=== PATIENT | female | born 1985 | race African-American/Black ===

== ENCOUNTER 2019-07-02 14:57 | Emergency (ER) | payer BC ==
[~2019-07-02] VITALS: Ht 167.6 cm; Wt 116.1 kg
[2019-07-02 15:31] VITALS: BP 106/54
--- NOTE | 2019-07-02 15:31 | NUR ---
ED Nurse Note: Patient arrived to ED by car from home c/o feeling off balance x3 days. Patient states she gets intermittent 5-10/10 headaches, but no ear eache or ear problems.. Patient AxO x 4, VSS. No s/s of acute distress. Bed in lowest position.
[2019-07-02 16:33] LABS: APPEARANCE,URINE CLEAR; BILIRUBIN, URINE NEGATIVE (NEGATIVE); COLOR,URINE PALE YELLOW; GLUCOSE, URINE (UA) NEGATIVE (NEGATIVE); KETONES,URINE NEGATIVE (NEGATIVE); LEUKOCYTE ESTERASE ,URINE NEGATIVE (NEGATIVE); NITRITE,URINE NEGATIVE (NEGATIVE); PH,URINE 5 (4.5-8.0); PROTEIN,URINE NEGATIVE (NEGATIVE); UROBILINOGEN,URINE NORMAL MG/DL (0.0-1.0)
--- NOTE | 2019-07-02 17:11 | Diagnostic Imaging Report ---
Indications: Dizziness and vertigo Technique: Spiral acquisitions obtained through the brain. Angled axial and coronal 5 x 5 mm slices were reconstructed. Total dose length product 1394 mGycm. CTDI vol(s) 62 mGy. Dose reduction achieved using automated exposure control Comparison: None. Findings: Normal size ventricles and extra axial CSF spaces. Normal burton-white differentiation. Visualized orbits and sinuses are unremarkable. Intact calvarium. No acute intercranial hemorrhage or edema, mass effect, nor midline shift. Impression: Negative This agrees with the preliminary interpretation provided overnight by [facility]. The CT scanner at [facility] is accredited by the [employer] and the scans are performed using protocols designed to limit radiation exposure to as low as reasonably achievable to attain images of sufficient resolution adequate for diagnostic evaluation.
[2019-07-02 19:27] LABS: BASOPHILS % (AUTO) 0.9 % (0.0-2.0); EOSINOPHILS % (AUTO) 3.1 % (0.0-3.0); HEMATOCRIT 39.5 % (37.0-47.0); HEMOGLOBIN 12.8 G/DL (12.0-16.0); LYMPHOCYTES % (AUTO) 40.5 % (20.0-45.0); MEAN CORPUSCULAR VOLUME 84 FL (80-99); NEUTROPHILS % (AUTO) 52.5 % (45.0-75.0); PLATELET COUNT 316 K/UL (150-450); RED BLOOD COUNT 4.72 M/UL (4.20-5.40); RED CELL DISTRIBUTION WIDTH 11.5 % (11.6-14.8); WHITE BLOOD COUNT 7.4 K/UL (4.8-10.8)
--- NOTE | 2019-07-02 19:28 | NUR ---
HAND-OFF: Report given to Stiven Kline RN.
--- NOTE | 2019-07-02 19:30 | NUR ---
ED Nurse Note: patient resting in bed with no acute distress. ao4. vss. aware of pending discharge; waiting for dc paperwork.
[2019-07-02 19:46] LABS: ANION GAP 12 mmol/L (5-15); BLOOD UREA NITROGEN 9 mg/dL (7-18); CARBON DIOXIDE 26 MMOL/L (21-32); CHLORIDE 106 MMOL/L (98-107); CREATININE 0.8 MG/DL (0.55-1.30); POTASSIUM 3.8 MMOL/L (3.5-5.1); SODIUM 144 MMOL/L (136-145)
[2019-07-02 19:54] LABS: ALANINE AMINOTRANSFERASE 42 U/L (12-78); ALBUMIN 3.9 G/DL (3.4-5.0); ALBUMIN/GLOBULIN RATIO 0.9 (1.0-2.7); ALKALINE PHOSPHATASE 60 U/L (46-116); ASPARTATE AMINO TRANSFERASE 28 U/L (15-37); BILIRUBIN,TOTAL 0.2 MG/DL (0.2-1.0)
--- NOTE | 2019-07-02 20:13 | Emergency Room Report ---
History of Present Illness General Chief Complaint: Headache Source: Patient Present Illness HPI 33-year-old female with no significant past medical history other than heavy tobacco smoker and daily consumption of alcohol use complaining of 3 days of lightheadedness and vertigo. Complains of a slight shortness of breath that started a day ago. Denies any recent cough and congestion other URI symptoms. Reports that everything started on New Year's Kacy and she does not recall whether she had a head injury or loss of consciousness as she consumes a lot of alcohol. Reports that she also smokes tobacco on daily basis. Denies other drug use. Denies abdominal pain, nausea vomiting, generalized chest pain, generalized weakness or unilateral weakness. Has not taken medication for symptom relief. Patient appears to be stable with stable vital signs. Denies meningismus, fever and chills. Denies urinary symptoms. Denies at this time. Denies dizziness however reports that she feels off balance and heavy legs and tingling in both legs when tries to walk. Reports that the vertigo is not worse with change of position of her head. Patient walks within normal limits and has no slurred speech. Allergies: Coded Allergies: No Known Allergies (Unverified , 07/02/19) Patient History Past Medical History: see triage record Past Surgical History: unable to obtain Pertinent Family History: none Social History: Reports: smoking, alcohol use Last Menstrual Period: 06/24/2019 Now: No Immunizations: UTD Reviewed Nursing Documentation: PMH: Agreed; PSxH: Agreed Nursing Documentation-PMH Past Medical History: No Stated History Review of Systems All Other Systems: negative except mentioned in HPI Physical Exam Vital Signs Date Time Temp Pulse Resp B/P (MAP) Pulse Ox O2 Delivery O2 Flow Rate FiO2 07/02/19 15:31 97.9 85 19 106/54 (71) 98 Room Air Sp02 EP Interpretation: reviewed, normal General Appearance: no apparent distress, alert, GCS 15, non-toxic Head: normocephalic, atraumatic Eyes: bilateral eye normal inspection, bilateral eye PERRL ENT: hearing grossly normal, normal pharynx, no angioedema, normal voice Neck: full range of motion, supple, thyroid normal, no meningismus, no bony tend, supple/symm/no masses Respiratory: chest non-tender, lungs clear, normal breath sounds, no rhonchi, no wheezing, speaking full sentences Cardiovascular #1: regular rate, rhythm, no edema, no murmur, normal capillary refill Cardiovascular #2: 2+ carotid (R), 2+ carotid (L), 2+ radial (R), 2+ radial (L) Gastrointestinal: normal bowel sounds, non tender, soft, non-distended, no guarding, no rebound Rectal: deferred Genitourinary: no CVA tenderness Musculoskeletal: back normal, normal range of motion, no calf tenderness Neurologic: alert, motor strength/tone normal, oriented x3, sensory intact, responsive, speech normal Psychiatric: judgement/insight normal, memory normal, mood/affect normal, no suicidal/homicidal ideation Skin: no rash Lymphatic: no adenopathy Medical Decision Making PA Attestation All diagnoses and treatment plans were reviewed and discussed with my supervising physician Dr. Orozco Diagnostic Impression: Primary Impression: Vertigo Additional Impressions: UTI (urinary tract infection) Dehydration ER Course 33-year-old female with no significant past medical history other than heavy tobacco smoker and daily consumption of alcohol use complaining of 3 days of lightheadedness and vertigo. Complains of a slight shortness of breath that started a day ago. Denies any recent cough and congestion other URI symptoms. Reports that everything started on New Year's Kacy and she does not recall whether she had a head injury or loss of consciousness as she consumes a lot of alcohol. Reports that she also smokes tobacco on daily basis. Denies other drug use. Denies abdominal pain, nausea vomiting, generalized chest pain, generalized weakness or unilateral weakness. Has not taken medication for symptom relief. Patient appears to be stable with stable vital signs. Denies meningismus, fever and chills. Denies urinary symptoms. Denies at this time. Denies dizziness however reports that she feels off balance and heavy legs and tingling in both legs when tries to walk. Reports that the vertigo is not worse with change of position of her head. Patient walks within normal limits and has no slurred speech. Ddx considered but are not limited to: Dizziness due to alcohol intoxication, dizziness unspecified, dizziness due to head trauma, dizziness secondary to cardiac reasons, vertigo, dehydration Vital signs: are WNL, pt. is afebrile H&PE are most consistent with: Vertigo, dehydration, UTI ORDERS: CBC, CMP, UA, tox screen, troponin, EKG, chest x-ray, Motrin, Excedrin, meclizine, Macrobid ER intervention: NS bolus DISCHARGE: At this time pt. is stable for d/c to home. Will provide printed patient care instructions, and any necessary prescriptions. Care plan and follow up instructions have been discussed with the patient prior to discharge. Patient to follow-up primary doctor, avoid drinking alcohol, with smoking tobacco, at this time patient symptoms are mostly secondary to dehydration and feeling lightheaded. However do follow with primary care provider for referral to desk officer as well as referral to neurologist. Worsening symptoms return to the emergency room. EKG Diagnostic Results Rate: normal Rhythm: NSR ST Segments: no acute changes Other Impression No acute ST changes Chest X-Ray Diagnostic Results Chest X-Ray Diagnostic Results : Chest X-Ray Ordered: Yes # of Views/Limited/Complete: 1 View Indication: Shortness of Breath EP Interpretation: Yes PA Xray: Interpretation reviewed, by supervising MD, and agrees with findings. Interpretation: no consolidation, no effusion, no pneumothorax Impression: No acute disease Electronically Signed by: Jose Ny PA-C Last Vital Signs Date Time Temp Pulse Resp B/P (MAP) Pulse Ox O2 Delivery O2 Flow Rate FiO2 07/02/19 15:31 97.9 19 106/54 98 Room Air 07/02/19 15:31 85 Disposition: HOME, SELF-CARE Condition: Stable Scripts Ibuprofen* (MOTRIN*) 600 Mg Tablet 600 MG ORAL Q8H PRN for For Pain, #30 TAB 0 Refills Prov: Jose Love 07/02/19 Nitrofurantoin Monohyd/M-Cryst* (MACROBID 100 MG*) 100 Mg Capsule 100 MG ORAL EVERY 12 HOURS for 7 Days, #14 CAP Prov: Jsoe Love 07/02/19 Aspirin/Acetaminophen/Caffeine (EXCEDRIN EXTRA STRENGTH CAPLET) 1 Each Tablet 1 EACH PO DAILY, #20 TAB Prov: Jose Love 07/02/19 Meclizine Hcl* (MECLIZINE*) 25 Mg Tablet 25 MG ORAL THREE TIMES A DAY, #15 TAB Prov: Jose Love 07/02/19 Referrals: NOT CHOSEN IPA/MD,REFERRING (PCP) Patient Instructions: Dehydration, Adult, [id number], Urinary Tract Infection , [id number], Vertigo Additional Instructions: Take medication as directed, follow-up with your primary care provider, increase oral hydration, avoid drinking alcohol avoid smoking. If worsening symptoms return to the emergency room. Jose Love Jul 02, 2019 20:13
[2019-07-02] MEDS ORDERED: IBUPROFEN600 MG ORAL (20:14)
[2019-07-02] MEDS ORDERED: NITROFURANTOIN100 M2 ORAL (20:14)
[2019-07-02] MEDS ORDERED: EXCEDRIN EXTRA1 EAC1 PO (20:14)
[2019-07-02] MEDS ORDERED: MECLIZINE HCL25 MG ORAL (20:14)
[2019-07-02 20:15] VITALS: BP 106/54
--- NOTE | 2019-07-02 20:15 | NUR ---
ER DISCHARGE NOTE: Patient is cleared to be discharged per ERMD, pt is aox4, on room air, with stable vital signs. pt was given dc and prescription instructions, pt was able to verbalize understanding, pt id band removed. pt is able to ambulate with steady gait. pt took all belongings.
--- NOTE | 2019-07-03 17:08 | Diagnostic Imaging Report ---
Indication: Chest pain Technique: One view of the chest Comparison: none Findings: Lungs and pleural spaces are clear. Heart size is normal. Impression: No acute process
== END 2019-07-02 20:15 | disposition home or self-care (01) ==
LOC: EMR 16:08
DX: R42 Dizziness and giddiness (principal); N39.0 Urinary tract infection, site not specified; E86.0 Dehydration; F17.200 Nicotine dependence, unspecified, uncomplicated
CPT/HCPCS: 36415; 70450; 71045; 80053; 81003; 81025; 84484; 85025; 87086; 93005; 99283